=== PATIENT | female | born 1975 | race Caucasian/White ===

== ENCOUNTER → 2016-10-18 | Outpatient (CLI) | payer OTHER | LOC: FIMAGING 09:58 | PROVIDERS: ATTEND Nurse Practitioner Women's Health | DX: Z12.39 Encounter for other screening for malignant neoplasm of breast (principal); N63 Unspecified lump in breast | CPT/HCPCS: G0204; G0279 ==

== ENCOUNTER → 2016-11-06 | Outpatient (CLI) | payer OTHER ==
[~2016-11-06] MED LIST: GADOBUTROL 10 ML VIAL IVP ONE
== END ==
LOC: FIMAGING 08:59
PROVIDERS: ATTEND Internal Medicine Hematology & Oncology
DX: C50.811 Malignant neoplasm of overlapping sites of right female breast (principal)
CPT/HCPCS: 0159T; 77059; 78306; A9503; A9585; C8908

== ENCOUNTER → 2016-11-07 | Outpatient (CLI) | payer OTHER | LOC: FIMAGING 12:08 | PROVIDERS: ATTEND Surgery | DX: Z09 Encounter for follow-up examination after completed treatment for conditions other than malignant neoplasm (principal); Z95.828 Presence of other vascular implants and grafts ==

== ENCOUNTER → 2017-10-15 | Outpatient (CLI) | payer BC | LOC: FIMAGING 15:56 | PROVIDERS: ATTEND Internal Medicine Hematology & Oncology | DX: Z12.31 Encounter for screening mammogram for malignant neoplasm of breast (principal); Z85.3 Personal history of malignant neoplasm of breast ==

== ENCOUNTER → 2018-10-14 | Outpatient (CLI) | payer OTHER | LOC: FIMAGING 10:25 | PROVIDERS: ATTEND Internal Medicine Hematology & Oncology | DX: Z12.31 Encounter for screening mammogram for malignant neoplasm of breast (principal); Z85.3 Personal history of malignant neoplasm of breast; Z90.11 Acquired absence of right breast and nipple ==

== ENCOUNTER → 2018-12-04 | Outpatient (CLI) | payer OTHER | LOC: FIMAGING 09:02 | PROVIDERS: ATTEND Internal Medicine Hematology & Oncology | DX: Z12.89 Encounter for screening for malignant neoplasm of other sites (principal); Z85.3 Personal history of malignant neoplasm of breast | CPT/HCPCS: 78306; A9503; J1642 ==